=== PATIENT | male | born 1990 | race African-American/Black ===

== ENCOUNTER 2018-03-05 01:57 | Emergency (ER) | payer BC, OTHER ==
[~2018-03-05] VITALS: Ht 180.3 cm; Wt 57.6 kg
[~2018-03-05 01:57] MED LIST: PREDNISONE50 MG PO; PROVENTIL HFA IN
[2018-03-05 02:43] LABS: HEMATOCRIT 46.1 % (39.0-50.0); HEMOGLOBIN 16.1 g/dl (14.0-18.0); IMMATURE GRANULOCYTES 0.1 % (0.0-5.0); MEAN CELL VOLUME 91.7 fL CALC (80.0-100.0); MEAN CORPUSCULAR HGB CONC 34.9 g/L CALC (32.0-36.0); NEUT# 2.95 thou/uL (1.82-7.42); RED BLOOD COUNT 5.03 mill/uL (4.70-6.10); RED CELL DISTRI WIDTH 12.2 % (11.5-15.5)
[2018-03-05 02:45] LABS: BARBITURATES NEGATIVE (NEGATIVE); COCAINE NEGATIVE (NEGATIVE); METHADONE NEGATIVE (NEGATIVE); OXCYCODONE NEGATIVE (NEGATIVE); TETRAHYDROCANNABIONOL NEGATIVE (NEGATIVE); TRICYLIC ANTIDEPRESSANTS NEGATIVE (NEGATIVE)
[2018-03-05 02:51] LABS: ALBUMIN 4.2 g/dL (3.2-5.0); ALKALINE PHOSPHATASE 61 u/l (38-126); BILIRUBIN, TOTAL 0.4 mg/dL (0.0-1.4); BUN 14 mg/dL (9-20); BUN/CREATININE RATIO 14 (12-20 (CALC)); CHLORIDE 108 mmol/l (95-108); GFR > 60 ML/MIN (>=60 (CALC)); GFR FOR AFR.AMER. > 60 ML/MIN (>=60 (CALC)); POTASSIUM 4.2 mmol/l (3.5-5.1); SGOT/AST 21 u/l (17-59); SODIUM 142 mmol/l (137-146); TOTAL PROTEIN 7.6 g/dL (6.3-8.2)
[2018-03-05 02:56] LABS: ANION GAP 11 (6-22 (CALC)); CARBON DIOXIDE 27 mmol/l (22-30)
[2018-03-05 03:03] LABS: MYOGLOBIN 19 ng/mL (0 - 121)
[2018-03-05 04:01] VITALS: BP 117/70
== END 2018-03-05 04:03 | disposition home or self-care (01) | DRG 313 ==
LOC: ED 01:57
PROVIDERS: Family Medicine
DX: R07.89 Other chest pain (principal); J45.909 Unspecified asthma, uncomplicated; F17.200 Nicotine dependence, unspecified, uncomplicated

== ENCOUNTER 2018-05-30 12:22 | Emergency (ER) | payer OTHER, BC ==
[~2018-05-30] VITALS: Ht 180.3 cm; Wt 61.0 kg
[2018-05-30 12:59] VITALS: BP 128/92
== END 2018-05-30 13:02 | disposition home or self-care (01) | DRG 310 ==
LOC: ED 12:22
DX: R00.2 Palpitations (principal); J45.909 Unspecified asthma, uncomplicated; F17.200 Nicotine dependence, unspecified, uncomplicated

== ENCOUNTER 2018-06-22 19:45 | Emergency (ER) | payer BC, OTHER ==
[~2018-06-22] VITALS: Ht 180.3 cm; Wt 60.0 kg
[2018-06-22 21:20] VITALS: BP 129/74
== END 2018-06-22 21:20 | disposition left against medical advice (07) | DRG 313 ==
LOC: ED 19:45
DX: R07.9 Chest pain, unspecified (principal); F17.200 Nicotine dependence, unspecified, uncomplicated; Z91.19 Patient's noncompliance with other medical treatment and regimen

== ENCOUNTER 2018-07-01 14:29 | Emergency (ER) | payer BC, OTHER ==
[~2018-07-01] VITALS: Ht 180.3 cm; Wt 65.9 kg
[2018-07-01] MEDS ORDERED: PROVENTIL108 MCG/AC IN (16:34)
[2018-07-01] MEDS ORDERED: ZITHROMAX250 MG PO (16:34)
[2018-07-01 16:47] VITALS: BP 128/85
== END 2018-07-01 16:58 | disposition home or self-care (01) | DRG 153 ==
LOC: ED 14:29
DX: J06.9 Acute upper respiratory infection, unspecified (principal); J40 Bronchitis, not specified as acute or chronic; F17.210 Nicotine dependence, cigarettes, uncomplicated

== ENCOUNTER 2020-06-22 00:54 | Emergency (ER) | payer SELFPAY ==
[~2020-06-22] VITALS: Ht 180.3 cm; Wt 65.0 kg
[~2020-06-22 00:54] MED LIST changes: +PROVENTIL108 MCG/AC IN; +ZITHROMAX250 MG PO
== END 2020-06-22 01:38 | disposition left against medical advice (07) | DRG 392 ==
LOC: ED 00:54
DX: R10.13 Epigastric pain (principal); Z91.19 Patient's noncompliance with other medical treatment and regimen

== ENCOUNTER 2022-07-06 02:17 | Emergency (ER) | payer SELFPAY ==
[~2022-07-06] VITALS: Ht 180.3 cm; Wt 67.0 kg
[2022-07-06 02:31] VITALS: BP 156/93
[2022-07-06 02:55] LABS: BASO% 0.3 % (0-3); EOS% 2.8 % (0-8); HEMATOCRIT 45.8 % (39.0-50.0); IMMATURE GRANULOCYTES 0.1 % (0.0-5.0); LYMPH% 51.2 % (15-41); MEAN CELL VOLUME 92.3 fL CALC (80.0-100.0); MEAN CORPUSCULAR HGB 32.3 pG CALC (26.0-32.0); MEAN CORPUSCULAR HGB CONC 34.9 g/dL CAL (32.0-36.0); MONO% 8.5 % (2-13); NEUT# 3.88 thou/uL (1.82-7.42); NEUT% 37.1 % (42-76); RED BLOOD COUNT 4.96 mill/uL (4.70-6.10)
[2022-07-06 03:07] VITALS: BP 151/88
[2022-07-06 03:28] VITALS: BP 151/88
== END 2022-07-06 03:29 | disposition left against medical advice (07) | DRG 392 ==
LOC: ED 02:17
PROVIDERS: Family Medicine
DX: R10.13 Epigastric pain (principal); Z53.29 Procedure and treatment not carried out because of patient's decision for other reasons
CPT/HCPCS: S0164